=== PATIENT | female | born 1995 | race Caucasian/White ===

== ENCOUNTER 2019-09-23 14:15 | Emergency (ER) | payer BC, SELFPAY ==
[2019-09-23 14:45] VITALS: BP 130/71; PULSE 63; RESP 16; TEMP 37.3; O2SAT 97
[2019-09-23 14:52] LABS: Glucose Point of Care 112 (65-105)
--- NOTE | 2019-09-23 14:57 | ED.URI ---
HPI - URI/Sore Throat General Chief Complaint: Upper Respiratory Infection Stated Complaint: Cold/Flu like symptoms History of Present Illness HPI Narrative: This is a 24-year-old female comes in with flulike symptoms patient did not make to the patient room when she passed out in the triage room went unresponsive. Patient became pale for approximately 1 minute she was unresponsive did not remember what happened she was laid to the floor by nursing staff. Ambulance was called and notified patient was transferred to [facility] patient was alert oriented and talking still very pale does not remember what happened. Patient denies any shortness of breath at this time states she became nauseated dizzy and remembers her vision going Related Data Home Medications Medication Instructions Recorded Confirmed Control Pill DAILY 09/23/19 Allergies Allergy/AdvReac Type Severity Reaction Status Date / Time Sulfa (Sulfonamide Allergy Rash Verified 09/23/19 15:01 Antibiotics) PMFSH Comments At time as signature, I have reviewed and agree with nursing past medical, social, surgical and family history. Please see nursing chart for further information. There is no relevant family history pertinent to the presenting complaint. Exam Narrative: Exam Narrative: GENERAL:pale appearing, well-nourished, in acute distress. HEAD:Normocephalic, atraumatic. EYES: PERRLA and EOMI. ENT: Nares clear, no rhinorrhea or epistaxis. Mucous membranes moist. NECK: Supple. CHEST: Clear to auscultation. No respiratory distress. HEART: Regular rate and rhythm. No murmur heard. Normal peripheral pulses. ABDOMEN: Soft, nontender, nondistended, normal active bowel sounds. EXTREMITIES: Normal range of motion. No edema. SKIN: Warm, dry, no rash. NEURO: No focal deficits. Alert and oriented x3. Patient went unresponsive for approximately 1 minute Vitals were stable and patient was able to sit up prior to going with the ambulance still very weak and pale color did not return. Mom went to the emergency room with patient as well. Course Vital Signs Vital signs: Vital Signs Temperature 99.1 F 09/23/19 14:45 Pulse Rate 63 09/23/19 14:45 Respiratory Rate 16 09/23/19 14:45 Blood Pressure 130/71 09/23/19 14:45 Pulse Oximetry 97 09/23/19 14:45 Temperature 99.1 F 09/23/19 14:45 Pulse Rate 63 09/23/19 14:45 Respiratory Rate 16 09/23/19 14:45 Blood Pressure 130/71 09/23/19 14:45 Pulse Oximetry 97 09/23/19 14:45 MDM - URI/Sore Throat Lab Data Labs: Lab Results 09/23/19 Range/Units 14:48 POC Capillary Glucose 112 H (65-105) mg/dl Discharge Plan Discharge Clinical Impression: Episode of syncope Qualifiers: Syncope type: unspecified Qualified Code(s): R55 - Syncope and collapse Patient Disposition: Acute Care Hospital Condition: Stable Prescriptions: No Action Control Pill DAILY RF: 0 Interventions: Discharge Disposition Last Done: 09/23/19 14:58 Follow-up/Referrals: UNKNOWN,DOCTOR [Primary Care Provider] - Time of Disposition: 14:54 Discharge Date/Time: 09/23/19 14:58
--- NOTE | 2019-09-23 15:36 | PC.NURSE ---
1520; CHART FAXED TO [facility] [place]. Edith DYE RN
== END 2019-09-23 14:58 | disposition short-term general hospital (02) ==
PROVIDERS: Emergency Provider Nurse Practitioner Family
DX: R55 Syncope and collapse (principal)
CPT/HCPCS: 82948; 99202; G0463

== ENCOUNTER 2024-12-06 15:36 | Emergency (ER) | payer OTHER, SELFPAY ==
[2024-12-06 15:38] VITALS: BP 134/79; PULSE 84; RESP 16; TEMP 36.3; O2SAT 97
--- OUTSIDE RECORDS SUMMARY | 2024-12-06 15:38 | XMS_ITS | Clinical Summary ---
Author Organization [facility] [address] [facility] Address [address] [place] [address] Care Team Providers Care Continuous Improvement Analyst Name Role Phone No, Physician Primary Care Provider [phone] Allergies Active Allergy Reactions Criticality Noted Date Comments Sulfa (Sulfonamide Antibiotics) Other (See comments) Low 08/14/2019 Pt's parents are both allergic, go into anaphylaxis, therefore, pt has been advised not to take sulfa. Medications .12/13, , 1.5-30 mg-mcg tablet per tablet TK 1 T PO D 05/29/2019 Active [id number]- Lmfolate-algal 27 mg iron-1.13 mg-581.92 mg capsule Take by mouth Active Active Problems No known active problems Surgical History Surgery Date Site/Laterality Comments WISDOM TOOTH EXTRACTION Medical History Medical History Date Comments No pertinent past medical history Family History Medical History Relation Name Comments Hyperlipidemia Father Hypertension Father Relation Name Status Comments Father Social History Tobacco Use Types Packs/Day Years Used Date Smoking Tobacco: Never Smokeless Tobacco: Never Alcohol Use Standard Drinks/Week Comments Yes 0 (1 standard drink = 0.6 oz pur e alcohol) Occasional Personal Safety Answer Date Recorded Getting School Help Needed Not on file 09/30 Comments Unknown Sex and Gender Information Value Date Recorded Sex Assigned at Not on file Legal Sex Female 3:36 PM CDT Gender Identity Not on file Sexual Orientation Not on file Obstetrics History Last Filed Vital Signs Vital Sign Reading Time Taken Comments Blood Pressure 120/72 02/13/2020 3:33 PM CDT Pulse 84 02/13/2020 3:34 PM CDT right hand Temperature 37.6 C (99.7 F) 02/13/2020 3:33 PM CDT Respiratory Rate 18 02/13/2020 3:33 PM CDT Oxygen Saturation 99% 02/13/2020 3:34 PM CDT right hand Inhaled Oxygen Concentration - - Weight 74.8 kg (165 lb) 02/13/2020 3:33 PM CDT Height 157.5 cm (5' 2 ) 02/13/2020 3:33 PM CDT Body Mass Index 30.18 02/13/2020 3:33 PM CDT Plan of Treatment Not on file Insurance [facility] Care Teams Continuous Improvement Analyst Relationship Specialty Start Date End Date No, Physician PCP - General 08/14/19
--- OUTSIDE RECORDS SUMMARY | 2024-12-06 15:38 | XMS_ITS | Referral Summary ---
Author Organization 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 Medications .12/13, , 1.5-30 mg-mcg tablet per tablet TK 1 T PO D 05/29/2019 Active [id number]- Lmfolate-algal 27 mg iron-1.13 mg-581.92 mg capsule Take by mouth Active Active Problems No known active problems Social History Tobacco Use Types Packs/Day Years [...] on file Sexual Orientation Not on file Last Filed Vital Signs Vital Sign Reading [...] Plan of Treatment Not on file Insurance [employer] Care Teams Electric Golf Cart Repairer Relationship Specialty Start Date End Date No, Physician PCP - General 08/14/19
--- OUTSIDE RECORDS SUMMARY | 2024-12-06 15:38 | XMS_ITS | Clinical Summary ---
Author Organization [facility] Address [address] [place] [address] Phone Care Team Providers Care Art Instructor Name Role Phone Provider, None Primary Care Provider Unavailabl e Allergies No known active allergies Medications No known medications Social History Tobacco Use Types Packs/Day Years Used Date Smoking Tobacco: Never Smokeless Tobacco: Never Alcohol Use Standard Drinks/Week Comments Never 0 (1 standard drink = 0.6 oz pur e alcohol) AUDIT-C Answer Date Recorded Q1: How often do you have a drink containing alc ohol? Never 09/23/2019 Average Number of Drinks Not on file 020 Frequency of Binge Drinking Not on file 03/2020 Comments No Sex and Gender Information Value Date Recorded Sex Assigned at Not on file Legal Sex Female 10:25 PM CDT Gender Identity Not on file Sexual Orientation Not on file Last Filed Vital Signs Vital Sign Reading Time Taken Comments Blood Pressure 125/66 09/23/2019 5:30 PM CDT Pulse 80 09/23/2019 5:15 PM CDT Temperature 37.7 C (99.9 F) 09/23/2019 3:32 PM CDT Respiratory Rate 14 09/23/2019 5:15 PM CDT Oxygen Saturation 99% 09/23/2019 5:15 PM CDT Inhaled Oxygen Concentration - - Weight 74.8 kg (165 lb) 09/23/2019 3:32 PM CDT Height 160 cm (5' 3 ) 09/23/2019 3:32 PM CDT Body Mass Index 29.23 09/23/2019 3:32 PM CDT Plan of Treatment Not on file Insurance [facility] Care Teams Art Instructor Relationship Specialty Start Date End Date Provider, None DONG PCP - General 09/23/19
--- OUTSIDE RECORDS SUMMARY | 2024-12-06 15:38 | XMS_ITS | Clinical Summary ---
Author Organization [facility] Address [address] [place] [address] Care Team Providers Care Corn Detasseler Machine Operator Name Role Phone Unavailable Primary Care Provider Unavailabl e Source Comments [facility],non-owned Affiliates and Associated Physician Practices is amultiple site organization consisting of ambulatory clinics and hospital sitesin [place], [place], [place] and [place]. This disclosure is being madepursuant to the Care Everywhere program and may not contain all information available regarding this patient. Last updated [employer] [facility] Allergies Active Allergy Reactions Criticality Noted Date Comments Sulfa Drugs Other Low 08/14/2019 Pt's parents are both allergic, go into anaphylaxis, therefore, pt has been advised not to take sulfa. Medications * Be aware that medications may not be up to date on this document. Alwaysverify current medications with the patient. norethindrone-et hinyl estradiol () 1.5-30 MG-MCG tablet Take 1 tablet by mouth once daily 05/29/2019 Active Multiple Vitamin (MULTIVITAMIN ADULT PO) Take 1 tablet by mouth once daily Active Active Problems No known active problems Immunizations Immunization Administration Dates Next Due INFLUENZA VACCINE 05/14/2020 Family History Medical History Relation Name Comments None Known Brother None Known Father None Known Maternal Aunt None Known Maternal Grandfather None Known Maternal Grandmother None Known Maternal Uncle None Known Mother None Known Other None Known Paternal Aunt None Known Paternal Grandfather None Known Paternal Grandmother None Known Paternal Uncle None Known Sister Asthma Neg Hx CVA Neg Hx Cancer - Breast Neg Hx Cancer - Other Neg Hx Cancer - Skin, Melanoma Neg Hx Cancer - Skin, Non Melanoma Neg Hx Eczema Neg Hx Hemophilia Neg Hx Psoriasis Neg Hx Relation Name Status Comments Brother Father Maternal Aunt Maternal Grandfather Maternal Grandmother Maternal Uncle Mother Other Paternal Aunt Paternal Grandfather Paternal Grandmother Paternal Uncle Sister Social History Tobacco Use Types Packs/Day Years Used Date Smoking Tobacco: Never Smokeless Tobacco: Never Comments Unknown Sex and Gender Information Value Date Recorded Sex Assigned at Not on file Legal Sex Female 12:11 PM CDT Gender Identity Not on file Sexual Orientation Not on file Plan of Treatment Health Maintenance Due Date Last Done Comments PAP SMEAR 1996 HIV SCREENING 2011 HEPATITIS C SCREENING 03/17/2014 DTAP/TDAP/TD VACCINES (1 - Tdap) 2015 HEPATITIS B VACCINE (1 of 3 - 19+ 3-dose series) 2015 COVID-19 VACCINE (1 - 2023-2 5 season) 2024 DEPRESSION SCREENING 07/17/2024 INFLUENZA VACCINE (Season Ended) 2025 05/14/20 20 ZOSTER VACCINE (1 of 2) 2046 HIB VACCINE Aged Out No longer eligi ble based on patient's age to complete this topic HPV VACCINE Aged Out No longer eligi ble based on patient's age to complete this topic MENINGOCOCCAL (Group B) VACC INE SHARED DECISION-MAKING Aged Out No longer eligibl e based on patient's age to complete this topic MENINGOCOCCAL GROUPS A/C/Y/W VACCINE Aged Out No longer eligible b ased on patient's age to complete this topic PNEUMOCOCCAL VACCINE Aged Out No long er eligible based on patient's age to complete this topic Insurance [employer] Member Subscriber Plan / Payer (Ef fective 2013-Present) Name:Clarissa Schmidt Relation to Subscriber:Child Name:LOULOU SCHMIDT Subscriber ID:Not on file (Home) Address: [address] [place] [address] Payer ID:[id number] (NAIC) Group ID:[id number] Type:O Address: [facility] [id number] [place] [id number]
--- NOTE | 2024-12-06 16:33 | ED.GENADULT ---
HPI - General Adult General Chief complaint: Head Injury Stated complaint: Head injury-chair tipped-hit wall, no LOC Time Seen by Provider: 12/06/24 16:16 History of Present Illness HPI narrative: Patient is a 29-year-old female who presents ER after striking her head on a wall while tipping back in her chair. No LOC. Has some mild frontal throbbing. Mild discomfort in the bilateral neck but maintains full range of motion. No numbness or tingling. She is not on blood thinning agents. No family history of aneurysm. No change in vision or hearing. No nausea or vomiting. Related Data Home Medications ?Medication ?Instructions ?Recorded ?Confirmed ?Last Taken ?Type Control Pill DAILY 09/23/19 Unknown History Allergies Allergy/AdvReac Type Severity Reaction Status Date / Time Sulfa (Sulfonamide Allergy Rash Verified 12/06/24 15:57 Antibiotics) Review of Systems Constitutional: Constitutional: Reports no additional constitutional complaints Eyes: Eyes: Reports no additional eye complaints Gastrointestinal: Gastrointestinal: Reports no additional gastrointestinal complaints Neurologic: Reports system reviewed and no additional complaints, except as documented PMFSH Past Medical History Medical History (Updated 12/06/24 @ 16:37 by Delroy Hedrick MD) Healthy female adult Surgical History Surgical History (Updated 12/06/24 @ 16:34 by Delroy Hedrick MD) No history of previous surgery Exam Narrative: GENERAL: Well-appearing, well-nourished, and in no acute distress. HEAD: Normocephalic, atraumatic. Eyes: PERRLA, EOMI. ENT: Mucous membranes moist. NECK: Supple. Full range of motion without midline tenderness. No significant point tenderness in paraspinal musculature. TMs normal bilaterally. NEURO: Alert and oriented x3. No facial droop. Clear speech. No expressive aphasia. PSYCH: Normal mood and affect. Course Course Emergency Course: Patient given reassurance. Naproxen for headache and neck discomfort. Zofran in case she develops nausea at home. May have mild concussion. Vital Signs Vital signs: Vital Signs Temperature 97.3 F L 12/06/24 15:38 Pulse Rate 84 12/06/24 15:38 Respiratory Rate 16 12/06/24 15:38 Blood Pressure 134/79 12/06/24 15:38 Pulse Oximetry 97 12/06/24 15:38 Oxygen Delivery Room Air 12/06/24 15:38 Temperature 97.3 F L 12/06/24 15:38 Pulse Rate 84 12/06/24 15:38 Respiratory Rate 16 12/06/24 15:38 Blood Pressure 134/79 12/06/24 15:38 Pulse Oximetry 97 12/06/24 15:38 Oxygen Delivery Room Air 12/06/24 15:38 Medical Decision Making MDM Narrative Medical decision making narrative: Turkish CT Head Injury/Trauma Rule from [employer] on 12/06/2024 All calculations should be rechecked by clinician prior to use RESULT SUMMARY: CT Unnecessary The Turkish CT Head Rule suggests a head CT is not necessary for this patient (sensitivity 83-100% for all intracranial traumatic findings, sensitivity 100% for findings requiring neurosurgical intervention). INPUTS: Age <16 years ?> 0 = No Patient on blood thinners ?> 0 = No Seizure after injury ?> 0 = No GCS <15 at 2 hours post-injury ?> 0 = No Suspected open or depressed skull fracture ?> 0 = No Any sign of basilar skull fracture? ?> 0 = No >= episodes of vomiting ?> 0 = No Age >=5 years ?> 0 = No Retrograde amnesia to the event >=30 minutes ?> 0 = No ?Dangerous? mechanism? ?> 0 = No Vital Signs Vital Signs: Vital Signs Temperature 97.3 F L 12/06/24 15:38 Pulse Rate 84 12/06/24 15:38 Respiratory Rate 16 12/06/24 15:38 Blood Pressure 134/79 12/06/24 15:38 Pulse Oximetry 97 12/06/24 15:38 Oxygen Delivery Room Air 12/06/24 15:38 Temperature 97.3 F L 12/06/24 15:38 Pulse Rate 84 12/06/24 15:38 Respiratory Rate 16 12/06/24 15:38 Blood Pressure 134/79 12/06/24 15:38 Pulse Oximetry 97 12/06/24 15:38 Oxygen Delivery Room Air 12/06/24 15:38 Discharge Plan Discharge Clinical Impression: Concussion without loss of consciousness, Cervical strain Patient Disposition: Home Condition: Stable Instructions: Cervical Strain (ED), Concussion (ED) Additional Instructions: Try to stay well hydrated at home. Please return to the emergency department if you develop worsening of your headache or a new headache which is severe, associated with vision changes, associated with neck stiffness or fever, or if it is different from any other headache that you have had before. Return to the emergency department if you develop numbness, weakness or tingling or problems with coordination, or if you develop severe nausea and vomiting and are unable to keep down fluids at home. Patient Language: French Prescriptions: New naproxen 375 mg tablet 375 mg PO BID Qty: 14 0RF ondansetron 4 mg tablet,disintegrating 4 mg PO Q6H PRN (Reason: nausea and vomiting) Qty: 10 0RF No Action Control Pill DAILY Follow-up/Referrals: UNKNOWN,DOCTOR [Primary Care Provider] - 1 Week
--- OUTSIDE RECORDS SUMMARY | 2024-12-06 16:51 | XMS_ITS | Data Portability ---
Author Organization [facility] ARNELAmanda Valdez Address [address] [facility] [address] Care Team Providers Care Sport Shoe Spike Assembler Name Role Phone GUS GOLDBERG Primary Care Provider Assessment No assessment recorded. Plan of Treatment Reminders Order Date Submit Date Provider Last Modified By Organization Details Last Modified Time Details Appointments ANNUAL 30 2024 07:45A M VLADIMIR Mayer Not available Not available Not available Lab None recorded. Referral None recorded. Procedures None recorded. Surgeries None recorded. Imaging None recorded. Medication Orders alprazola m 0.5 mg tablet 2023 024 [id number], [address], [place], [id number], 01/29/2024 17:00:19 paroxetin e 30 mg tablet 2023 024 [id number], [address], [place], [phone], 01/29/2024 17:08:07 Wegovy 0.25 mg/0.5 mL subcutane ous pen injector 2023 024 [facility] #[id number], [address], [place], [id number], 01/29/2024 17:00:13 Patient TargetsNo targets recorded. Patient Instructions Encounter Date Encounter Id Patient Instructions Last Modified By Organization Details Last Modified Time 01/29/2024 [id number] A healthy lifestyle: care instructions [email or web address] Not available 02/14/2024 09:47:48 Reason for Referral None Reported. Problems Name Problem SNOMED Code Status Onset Date Resolution Date Notes Provider Name and Address Organization Details Recorded Time Obesity 301286613 Active 2023 VLADIMIR Mayer Attn: Accountnicky g,[address] [facility], [place], [address], [facility] 4 09:10:30 Body mass index 30+ - obesity 813923468 Active 2023 VLADIMIR Mayer Attn: Accountin g,[address] [facility], [place], [address], [facility] 4 09:10:32 Long-term drug therapy Active 2023 VLADIMIR Mayer Attn: Accountin g,[address] [facility], [place], [address], [facility] 4 09:10:33 Generalized anxiety disorder 18824774 Active 2023 VLADIMIR Mayer Attn: Accountin g,[address] [facility], [place], [address], [facility] 4 09:10:34 Insulin resistance 834870886 Active 2023 VLADIMIR Mayer Attn: Accountin g,[address] [place], [address], [facility] 4 09:10:35 Prediabetes 088586951 Active 2023 VLADIMIR Mayer Attn: Accountin g,[address] [place], [address], [facility] 4 09:10:37 Problem Notes None recorded. Procedures Surgical History Date Name Laterality Status Provider Name and Address Organization Details Recorded Time extraction of wisdom tooth completed Otilia Dewitt [place] [facility] 01/29/2024 16:37:22 Imaging Results None recorded. Procedure Notes None recorded. Medical Equipment None Reported. Allergies Allergen ID Allergen Name Allergen Category Reaction Reaction Severity Criticality Documentation Date Start Date Code Code System Note Provider Name and Address Organization Details Recorded Time 815588 Substance with sulfonami de structure and antibacte rial mechanism of action (substanc e) medicatio n Not available Not available Not available 01/29/2024 74324 8003 SNOMED Unkno wn parte nts are just aller gic Otilia Esdras, MA null, [place] - [facility] 4 16:32:47 Medications Name Sig Start Date Stop Date Status Note LastModified by Organization Details LastModified Time clindamycin HCl 300 mg capsule TAKE 1 CAPSULE BY MOUTH THREE TIMES DAILY FOR 10 DAYS active Not Available Not Available No t Available alprazolam 0.5 mg tablet TAKE 1 TABLET BY MOUTH TWICE DAILY NEEDED active Not Available Not Available No t Available amoxicillin 875 mg tablet TAKE 1 TABLET BY MOUTH EVERY 12 HOURS FOR 7 DAYS 10/09 completed Not Available Not Available Not Available alprazolam 0.25 mg tablet TAKE 1 TABLET BY MOUTH TWICE DAILY NEEDED 10/09 completed Not Available Not Available Not Available imiquimod 5 % topical cream packet 10/09 completed Not Available Not Available Not Available paroxetine 30 mg tablet TAKE 1 TABLET BY MOUTH EVERY DAY active Not Available Not Available No t Available paroxetine 20 mg tablet TAKE 1 TABLET BY MOUTH EVERY DAY IN THE EVENING 10/09 completed Not Available Not Available Not Available mupirocin 2 % topical ointment APPLY TOPICALLY TO THE AFFECTED AREA TWICE DAILY FOR 10 DAYS active Not Available Not Available No t Available metformin ER 500 mg tablet,exte nded release 24 hr 10/09 completed Not Available Not Available Not Available sertraline 50 mg tablet TAKE 1 TABLET BY MOUTH EVERY NIGHT AT BEDTIME. DISCONTIN UE LEXAPRO PRESCRIPT ION 10/09 completed Not Available Not Available Not Available amoxicillin 875 mg-potassiu m clavulanate 125 mg tablet TAKE 1 TABLET BY MOUTH TWICE DAILY FOR 10 DAYS 10/09 completed Not Available Not Available Not Available escitalopra m 10 mg tablet TAKE 1 TABLET BY MOUTH EVERY DAY 10/09 completed Not Available Not Available Not Available escitalopra m 20 mg tablet TAKE 1 TABLET BY MOUTH EVERY DAY 10/09 completed Not Available Not Available Not Available escitalopra m 5 mg tablet TAKE 1 TABLET BY MOUTH EVERY DAY IN THE EVENING 10/09 completed Not Available Not Available Not Available oseltamivir 30 mg capsule 10/09 completed Not Available Not Available Not Available Sally 1.5 mg-30 mcg tablet TAKE 1 TABLET BY MOUTH EVERY DAY active Not Available Not Available No t Available Wegovy 0.25 mg/0.5 mL subcutaneou s pen injector Inject by subcutane ous route for 28 days. 2023 active Not Available Not Available Not Avai lable Vitals Date Recorded Body weight Body mass index (BMI) Body height Heart rate Oxygen saturation Oxygen saturation in Arterial blood by Pulse oximetry Systolic blood pressure Diastolic blood pressure Provider Name and Address Organization Details Last Updated DateTime 16165.1 9 g 37.3 kg/m2 160.02 cm 74 /min 98 % 98 % 134 mm[Hg] 68 mm[Hg] Otilia Dewitt MA [facility] 16:42:04 Date Recorded Respiratory rate Systolic blood pressure Diastolic blood pressure Provider Name and Address Organization Details Last Updated DateTime 01/29/2024 18 /min 120 mm[Hg] 80 mm[Hg] VLADIMIR Mayer Attn: Accounting, [address] [place], [address], [facility] 01/29/2024 17:05:17 Social History Question Answer Notes LastModified by Organizat ion Details LastModified Time Tobacco Smoking Status Never Smoker Otilia Dewitt MA null, [facility] 01/29/2024 16:34:17 Do You Have An Advance Directive? No POA Information not available 01/29/2024 Are You Blind Or Do You Have Difficulty Seeing? Yes Contacts, Glasses Information not available 01/29/2024 What Is Your Level Of Caffeine Consumption? Heavy Information not available 01/29/2024 In The 14 Days Before Symptom Onset, Have You Had Close Contact With A Laboratory-confir med COVID-19 While That Case Was Ill? No Information not available 01/29/2024 In The 14 Days Before Symptom Onset, Have You Had Close Contact With A Person Who Is Under Investigation For COVID-19 While That Person Was Ill? No Information not available 01/29/2024 Have You Been To An Area Known To Be High Risk For COVID-19? No Information not available 01/29/2024 Are You Deaf Or Do You Have Serious Difficulty Hearing? No Information not available 01/29/2024 What Type Of Diet Are You Following? REGULAR Information not available 01/29/2024 Are There Any Guns Present In Your Home? No Information not available 01/29/2024 What Was The Date Of Your Most Recent Tobacco Screening? 01/29/2024 Information not available 01/29/2024 What Is Your Relationship Status? Single Information not available 01/29/2024 Do You Use Your Seat Belt Or Car Seat Routinely? Yes Information not available 01/29/2024 Do You Have Smoke And Carbon Monoxide Detectors In Your Home? Yes Information not available 01/29/2024 Do You Use Sunscreen Routinely? Yes Information not available 01/29/2024 Has Tobacco Cessation Counseling Been Provided? No Information not available 01/29/2024 Sex: Female Functional Status Question Answer Note LastModified by Organizat ion Details LastModified Time Do you use any illicit or recreational drugs? No Information not available 01/29/2024 Do you or have you ever used any other forms of tobacco or nicotine? No Information not available 01/29/2024 What is your level of alcohol consumption? Occasional Information not available 01/29/2024 Are you currently employed? Yes Information not available 01/29/2024 Are you able to care for yourself? 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 None Information not available 01/29/2024 Mental Status Question Answer Note LastModified by Organization D etails LastModified Time Do you feel stressed (tense, restless, nervous, or anxious, or unable to sleep at night)? [id number] Information not available 01/29/2024 Family History Relationship Description Onset Age of this Age Resolved Age Notes LastModified by Organization Details LastModified Time Father Harmful pattern of use of alcohol mebyma Not available 2023 16:33:33 Father Hypertensive disorder mebyma Not available 2023 16:33:42 Father Hypercholest erolemia mebyma Not available 2023 16:33:48 Medical History No medical history recorded. Gynecological History Statement/Question Response Current Control Method BCPs Obstetrics History GPAL:G 0 P 0 0 0 0 Past Encounters Encounter ID Performer Location Encounter Start Date Encounter Closed Date Diagnosis/Indication Diagnosis SNOMED-CT Code Diagnosis ICD10 Code Diagnosis Note [id number] Nick Rebolledo MD [facility] [place] [address] [place] [address] 01/29/2024 16:11:06 01/29/2024 17:15:22 Adult health examination 865754881 Z00.01 Annual wellness exam complete Prediabetes 877506247 R7 3.03 As above Insulin resistance 25863 5000 E88.819 Patient is hoping that would GLP injectable therapy will be approved and this will further treat her insulin resistance and prediabete s Generalize d anxiety disorder 70011419 F41.1 Patient needs a refill on p.r.n. dosing of alprazolam 0.5 mg twice daily Long-term drug therapy 981046980 Z79.899 All labs are currently up-to-date from the last office location Body mass index 30+ - obesity 217594102 Z68.37 start wegovy injectable therapy. no personal or family hx of Medullary thyroid cancer or MEN conditions . Renewal of prescription 568406810 Z76.0 Refill on Paxil 30 mg daily given Obesity 828688929 E66.8 discussed healthy diet, exercise, controllin g carbohydra obdulio and added sugars in the diet Health Concerns Section Related Observation LastModified by Organization Detai ls LastModified Time None Recorded Concern Status LastModified by Organization Details LastModified Time None Recorded Advance Directives Directive N: POA Payers Encounter Date Sequence Insurance Name Policy Number Policy Ma Covered Member ID Ma Member ID Guarantor Name 01/29/2024 1 [employer] - [employer] BENEFIT [email or web address] (PPO) Clarissa Logterman [id number] Clarissa Logterman Notes Date Note Type Note Provider Name and Address Organization Details Recorded Time 01/29/2024 text/html Anxiety/Depressi on Reported bypatient.Notes:Kiya kerr: stabilized on paroxetine 30mg daily. She is doing well with her anxiety and has no new complaints. 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 VLADIMIR Mayer Attn: Accounting,[address] [place], [address], [facility] 02/14/2024 09:48:54 OBGyn Episode No OBEpisode recorded.
--- OUTSIDE RECORDS SUMMARY | 2024-12-06 16:51 | XMS_ITS | Clinical Summary ---
Author Organization [facility] Address [address] [facility] [place] [address] Care Team Providers Care Clay Artist Name Role Phone Unavailable Primary Care Provider Unavailabl e Source Comments [facility],non-owned Affiliates and Associated Physician Practices is amultiple site organization consisting of ambulatory clinics and hospital sitesin [place], [place], [place] and [place]. This disclosure is being madepursuant to the Care Everywhere program and may not contain all information available regarding this patient. Last updated 18.[facility] Allergies Active Allergy Reactions Criticality Noted Date [...] on file (Home) Address: [address] [place] [address] Payer ID:[id number] (NAIC) Group ID:[id number] Type:O Address: [facility] [id number] [place] [id number]
--- OUTSIDE RECORDS SUMMARY | 2024-12-06 16:51 | XMS_ITS | Referral Summary ---
Author Organization [facility] [address] [facility] Address [address] [place] [address] Care Team Providers Care Logistics Loss Prevention Manager Name Role Phone No, Physician Primary Care Provider [phone] Allergies Active Allergy Reactions Criticality Noted Date Comments Sulfa (Sulfonamide Antibiotics) Other (See comments) Low 08/14/2019 Pt's parents are both allergic, go into anaphylaxis, therefore, pt has been advised not to take sulfa. Medications .12/13, , 1.5-30 mg-mcg tablet per tablet TK 1 T PO D 05/29/2019 Active [id number]-ezwl- Lmfolate-algal 27 mg iron-1.13 mg-581.92 mg capsule [...] on file Insurance [employer] Care Teams Logistics Loss Prevention Manager Relationship Specialty Start Date End Date No, Physician PCP - General 08/14/19
--- OUTSIDE RECORDS SUMMARY | 2024-12-06 16:51 | XMS_ITS | Clinical Summary ---
Author Organization [facility] Address [address] [place] [address] Phone Care Team Providers Care Manager Android Name Role Phone Provider, None Primary Care [...] Plan of Treatment Not on file Insurance [facility] Care Teams Manager Android Relationship Specialty Start Date End Date Provider, None DONG PCP - General 09/23/19
--- OUTSIDE RECORDS SUMMARY | 2024-12-06 16:51 | XMS_ITS | Clinical Summary ---
Author Organization [facility] [address] [facility] Address [address] [place] [address] Care Team Providers Care Method Consultant Name Role Phone No, Physician Primary Care Provider [phone] Allergies Active Allergy Reactions Criticality Noted Date Comments Sulfa (Sulfonamide Antibiotics) Other (See comments) Low 08/14/2019 Pt's parents are both allergic, go into anaphylaxis, therefore, pt has been advised not to take sulfa. Medications .12/13, , 1.5-30 mg-mcg tablet per tablet TK 1 T PO D 05/29/2019 Active pvynekhc65-hhub- Lmfolate-algal 27 mg iron-1.13 mg-581.92 mg capsule [...] Plan of Treatment Not on file Insurance [facility] Care Teams Method Consultant Relationship Specialty Start Date End Date No, Physician PCP - General 08/14/19
--- OUTSIDE RECORDS SUMMARY | 2024-12-06 16:51 | XMS_ITS | Data Portability ---
Author Organization [place] [facility], Main Office Address [address] [place] [address] Assessment Encounter Date Assessment Date Assessment LastModified by Organization Details LastModified Time 11/15/2022 11/15/2022 The patient gave verbal consent using TeleHealth services and the consent is documented in the medical record prior to using the service. The patient has been informed of what a TeleMedicine visit is. Patient is located at home. Provider is located at office. Names and roles of persons in addition to the patient and provider participating in telemedicine services include none. The patient had a 12 minute TeleMedicine consultation via [facility] to discuss the following: Not available 11/15/2022 12:43:08 12/13/2022 12/13/2022 The patient gave verbal consent using TeleHealth services and the consent is documented in the medical record prior to using the service. The patient has been informed of what a TeleMedicine visit is. Patient is located at home. Provider is located at office. Names and roles of persons in addition to the patient and provider participating in telemedicine services include none. The patient had a 11 minute TeleMedicine consultation via [facility] to discuss the following: Not available 12/13/2022 09:34:34 01/10/2023 01/10/2023 The patient gave verbal consent using TeleHealth services and the consent is documented in the medical record prior to using the service. The patient has been informed of what a TeleMedicine visit is. Patient is located at home. Provider is located at office. Names and roles of persons in addition to the patient and provider participating in telemedicine services include none. The patient had a 8 minute TeleMedicine consultation via [facility] to discuss the following: Not available 01/10/2023 20:42:48 Plan of Treatment Reminders Order Date Submit Date Provider Last Modified By Organization Details Last Modified Time Details Appointments None recorded. Lab None recorded. Referral None recorded. Procedures None recorded. Surgeries None recorded. Imaging None recorded. Medication Orders paroxetine 30 mg tablet 2022 023 [employer] [employer] [facility]87, [address], [place], [place], [id number], 3 20:41:53 alprazolam 0.5 mg tablet 2022 023 [facility] #00854, [address], [place], [place], [id number], 3 09:35:03 escitalopra m 20 mg tablet 2022 023 [facility] #93277, [address], [place], [place], [id number], 3 18:04:33 Lexapro 5 mg tablet 2022 023 [facility] #01126, [address], [place], [place], [id number], 3 21:49:47 alprazolam 0.25 mg tablet 2022 023 [facility] #22755, [address], [place], [place], [id number], 3 09:35:05 Patient TargetsNo targets recorded. Patient Instructions Encounter Date Encounter Id Patient Instructions Last Modified By Organization Details Last Modified Time 11/15/2022 [id number] Due to the COVID-19 (Novel Coronavirus) pandemic, it is within this context (and with the understanding that this method of patient encounter is in the patient s best interest as well as the health and safety of other patients and the public) that telehealth is being provided for this patient encounter rather than a pdpk-ox-idqm visit. This patient encounter is appropriate at this time. This patient has been advised of the potential risks and limitations of this mode of treatment (including, but not limited to, the absence of in-person examination) and has agreed to be treated in a remote fashion despite these risks. Any and all of the patient s/patient s family s questions on this issue have been answered, and I have made no promises or guarantees to the patient. The patient has also been advised to contact this office for worsening conditions or problems, and seek emergency medical treatment and/or call 911 if the patient deems either necessary. HPI and/or vitals, if listed, were provided by the patient. [email or web address] Not available 11/15/2022 12:27:38 01/10/2023 [id number] Due to the COVID-19 (Novel Coronavirus) pandemic, it is within this context (and with the understanding that this method of patient encounter is in the patient s best interest as well as the health and safety of other patients and the public) that telehealth is being provided for this patient encounter rather than a wcmg-pv-qnag visit. This patient encounter is appropriate at this time. This patient has been advised of the potential risks and limitations of this mode of treatment (including, but not limited to, the absence of in-person examination) and has agreed to be treated in a remote fashion despite these risks. Any and all of the patient s/patient s family s questions on this issue have been answered, and I have made no promises or guarantees to the patient. The patient has also been advised to contact this office for worsening conditions or problems, and seek emergency medical treatment and/or call 911 if the patient deems either necessary. HPI and/or vitals, if listed, were provided by the patient. [email or web address] Not available 01/10/2023 09:18:12 Reason for Referral None Reported. Results Created Date Observation Date Name Description Value Unit Range Abnormal Flag Note LastModifiedBy Organization Detail LastModifiedTime 10/05/19 23 10/10/2022 FSH AND LH FSH 0.9 mIU/m L low Refer ence Range Folli cular Phase 2.5-1 0.2 Mid-c ycle Peak 3.1-1 7.7 Lutea l Phase 1.5- 9.1 Postm enopa usal 23.0- 116.3 Not Available [address] [place], [address], 10/10/2022 02:12:33 10/05/19 23 10/10/2022 FSH AND LH LH 0.4 mIU/m L low Refer ence Range Folli cular Phase 1.9-1 2.5 Mid-C ycle Peak 8.7-7 6.3 Lutea l Phase 0.5-1 6.9 Postm enopa usal 10.0- 54.7 Not Available [facility] [address], [address], 10/10/2022 02:12:33 10/05/1910/10/2022 TSH+F REE T4 TSH 2.30 mIU/L normal Refer ence Range > or = 20 Years 0.40- 4.50 Pregn hong Range s First trime ster 0.26- 2.66 Secon d trime ster 0.55- 2.73 Third trime ster 0.43- 2.91 Not Available [address], [address], 10/10/2022 02:12:34 10/05/1910/10/2022 TSH+F REE T4 T4, free 1.2 NG/dL 0.8-1. 8 normal Not Available [address], [address], 10/10/2022 02:12:34 10/05/19 23 10/10/2022 LIPID PANEL WITH RATIO S cholesterol, total 176 mg/dL <200 normal Not Available [address], [address], 10/10/2022 02:12:35 10/05/19 23 10/10/2022 LIPID PANEL WITH RATIO S HDL cholesterol 36 mg/dL > or = 50 low Not Available [address], [address], 10/10/2022 02:12:35 10/05/1910/10/2022 LIPID PANEL WITH RATIO S triglyceride s 147 mg/dL <150 normal Not Available [address], [address], 10/10/2022 02:12:35 10/05/19 23 10/10/2022 LIPID PANEL WITH RATIO S LDL-choleste rol 114 mg/dL _(marian c) high Refer ence range : <100 Becka able range <100 mg/dL for prima ry preve ntion ; <70 mg/dL for patie nts with CHD or diabe tic patie nts with > or = 2 CHD risk facto rs. LDL-C is now calcu lated using the Jaja n-Hop kins calcu francisco javier n, which is a valid ated novel mico d provi ding bereket r accur acy than the Fried sergio equat ion in the estim ation of LDL-C . Jaja cedeno SS et al. MONA. 2013; 310(1 9): 2061- 2068 (http ://ed ucati on.Qu estDi Push Computing. com/f aq/FA Q164) Not Available [address], [address], 10/10/2022 02:12:35 10/05/1910/10/2022 LIPID PANEL WITH RATIO S chol/HDLC ratio 4.9 (calc ) <5.0 normal Not Available [address], [address], 10/10/2022 02:12:35 10/05/1910/10/2022 LIPID PANEL WITH RATIO S LDL/HDL ratio 3.2 (calc ) Below avera ge Risk: <2.34 [place] ge Risk: 2.35- 4.12 Moder ate Risk: 4.13- 5.56 High Risk: >5.57 Not Available [address], [address], 10/10/2022 02:12:35 10/05/19 23 10/10/2022 LIPID PANEL WITH RATIO S non HDL cholesterol 140 mg/dL _(marian c) <130 high For patie nts with diabe obdulio plus 1 major ASCVD risk facto r, treat ing to a non-H DL-C goal of <100 mg/dL (LDL- C of <70 mg/dL ) is consi matthias salinas optio n. Not Available [address] [address] [place], [address], 10/10/2022 02:12:35 10/05/19 23 10/10/2022 COMPR EHENS MELISSA METAB OLIC PANEL glucose 91 mg/dL 65-99 normal Fasti ng refer ence inter ta Not Available [address] [address] [place], [address], 10/10/2022 02:12:36 10/05/19 23 10/10/2022 COMPR EHENS MELISSA METAB OLIC PANEL urea nitrogen (BUN) 10 mg/dL 7-25 normal Not Available [address] [address] [place], [address], 10/10/2022 02:12:36 10/05/19 23 10/10/2022 COMPR EHENS MELISSA METAB OLIC PANEL creatinine 0.74 mg/dL 0.50-0 .96 normal Not Available [address] [address] [place], [address], 10/10/2022 02:12:36 10/05/19 23 10/10/2022 COMPR EHENS MELISSA METAB OLIC PANEL eGFR 114 mL/mi n/1.7 3m2 > or = 60 normal The eGFR is based on the CKD-E PI 2020 reinaldo mandel. To calcu late the new eGFR from a previ ous Creat inine or Cysta josé antonio C resul t, go to https ://hattie crenshaw.orlando casanova/rock wilde s/ kdoqi /gfr% 5Fcal culat or Not Available [address] [address] [place], [address], 10/10/2022 02:12:36 10/05/19 23 10/10/2022 COMPR EHENS MELISSA METAB OLIC PANEL BUN/creatini ne ratio NOT APPLIC ABLE (calc ) 6-22 Not Available [address], [address], 10/10/2022 02:12:36 10/05/19 23 10/10/2022 COMPR EHENS MELISSA METAB OLIC PANEL sodium 139 mmol/ L 135-14 6 normal Not Available [address], [address], 10/10/2022 02:12:36 10/05/19 23 10/10/2022 COMPR EHENS MELISSA METAB OLIC PANEL potassium 4.0 mmol/ L 3.5-5. 3 normal Not Available [address], [address], 10/10/2022 02:12:36 10/05/19 23 10/10/2022 COMPR EHENS MELISSA METAB OLIC PANEL chloride 106 mmol/ L 98-110 normal Not Available [address], [address], 10/10/2022 02:12:36 10/05/19 23 10/10/2022 COMPR EHENS MELISSA METAB OLIC PANEL carbon dioxide 25 mmol/ L 20-32 normal Not Available [address], [address], 10/10/2022 02:12:36 10/05/19 23 10/10/2022 COMPR EHENS MELISSA METAB OLIC PANEL calcium 8.9 mg/dL 8.6-10 .2 normal Not Available [address], [address], 10/10/2022 02:12:36 10/05/19 23 10/10/2022 COMPR EHENS MELISSA METAB OLIC PANEL protein, total 6.9 g/dL 6.1-8. 1 normal Not Available [address], [address], 10/10/2022 02:12:36 10/05/19 23 10/10/2022 COMPR EHENS MELISSA METAB OLIC PANEL albumin 4.3 g/dL 3.6-5. 1 normal Not Available [address], [address], 10/10/2022 02:12:36 10/05/19 23 10/10/2022 COMPR EHENS MELISSA METAB OLIC PANEL globulin 2.6 g/dL_ (calc ) 1.9-3. 7 normal Not Available [address], [address], 10/10/2022 02:12:36 10/05/19 23 10/10/2022 COMPR EHENS MELISSA METAB OLIC PANEL albumin/glob ulin ratio 1.7 (calc ) 1.0-2. 5 normal Not Available [address], [address], 10/10/2022 02:12:36 10/05/19 23 10/10/2022 COMPR EHENS MELISSA METAB OLIC PANEL bilirubin, total 0.4 mg/dL 0.2-1. 2 normal Not Available [address], [address], 10/10/2022 02:12:36 10/05/19 23 10/10/2022 COMPR EHENS MELISSA METAB OLIC PANEL alkaline phosphatase 72 U/L 31-125 normal Not Available [address], [address], 10/10/2022 02:12:36 10/05/19 23 10/10/2022 COMPR EHENS MELISSA METAB OLIC PANEL AST 16 U/L 10-30 normal Not Available [address], [address], 10/10/2022 02:12:36 10/05/19 23 10/10/2022 COMPR EHENS MELISSA METAB OLIC PANEL ALT 35 U/L 6-29 high Not Available [facility] [address] , [place], [address], 10/10/2022 02:12:36 10/05/19 23 10/10/2022 HEMOG LOBIN A1C hemoglobin A1C 5.4 %_of_ total _HGB <5.7 normal For the purpo se of scree avtar for the prese nce of diabe obdulio: <5.7% Consi stent with the absen ce of diabe obdulio 5.7-6 .4% Consi stent with incre ased risk for diabe obdulio (pred iabet es) > or =6.5% Consi stent with diabe obdulio This assay resul t is consi stent with a decre ased risk of diabe obdulio. Curre ntly, no conse nsus exist s ava taylor use of hemog lobin A1c for diagn osis of diabe obdulio in child juan carlos. Accor ding to Ameri can Diabe obdulio Assoc iatio n (ADA) guide lines , hemog lobin A1c <7.0% repre sents optim al contr ol in non-p regna nt diabe tic patie nts. Diffe rent metri cs may apply to speci fic patie nt popul ation s. Stand ards of Medic al Care in Diabe obdulio(A DA). Not Available [facility] [address], [place], [address], 10/10/2022 02:12:36 10/05/19 23 10/10/2022 ESTRO GEN, TOTAL , SERUM estrogen, total, serum 95.9 pg/mL Refer ence Range s for Total Estro gen: Folli cular Phase (1-12 days) : 90-59 0 pg/mL Lutea l Phase : 130-4 60 pg/mL Postm enopa usal: 50-17 0 pg/mL The total estro gen assay is not recom cindy d for use in pre-p ubert al child juan carlos. Not Available [address] [address] [place], [address], 10/10/2022 02:12:37 10/05/1910/10/2022 CBC (INCL UDES DIFF/ PLT) white blood cell count 7.3 thous and/u L 3.8-10 .8 normal Not Available [address], [address], 10/10/2022 02:12:38 10/05/1910/10/2022 CBC (INCL UDES DIFF/ PLT) red blood cell count 4.86 harsh on/uL 3.80-5 .10 normal Not Available [address], [address], 10/10/2022 02:12:38 10/05/1910/10/2022 CBC (INCL UDES DIFF/ PLT) hemoglobin 14.7 g/dL 11.7-1 5.5 normal Not Available [address], [address], 10/10/2022 02:12:38 10/05/1910/10/2022 CBC (INCL UDES DIFF/ PLT) hematocrit 43.6 % 35.0-4 5.0 normal Not Available [address], [address], 10/10/2022 02:12:38 10/05/1910/10/2022 CBC (INCL UDES DIFF/ PLT) MCV 89.7 fL 80.0-1 00.0 normal Not Available [address], [address], 10/10/2022 02:12:38 10/05/1910/10/2022 CBC (INCL UDES DIFF/ PLT) MCH 30.2 pg 27.0-3 3.0 normal Not Available [address], [address], 10/10/2022 02:12:38 10/05/19 23 10/10/2022 CBC (INCL UDES DIFF/ PLT) MCHC 33.7 g/dL 32.0-3 6.0 normal Not Available [address], [address], 10/10/2022 02:12:38 10/05/19 23 10/10/2022 CBC (INCL UDES DIFF/ PLT) RDW 12.0 % 11.0-1 5.0 normal Not Available [address], [address], 10/10/2022 02:12:38 10/05/19 23 10/10/2022 CBC (INCL UDES DIFF/ PLT) platelet count 330 thous and/u L 140-40 0 normal Not Available [address], [address], 10/10/2022 02:12:38 10/05/19 23 10/10/2022 CBC (INCL UDES DIFF/ PLT) MPV 9.1 fL 7.5-12 .5 normal Not Available [address], [address], 10/10/2022 02:12:38 10/05/19 23 10/10/2022 CBC (INCL UDES DIFF/ PLT) absolute neutrophils 4979 cells /uL 1500-7 800 normal Not Available [address], [address], 10/10/2022 02:12:38 10/05/19 23 10/10/2022 CBC (INCL UDES DIFF/ PLT) absolute lymphocytes 1701 cells /uL 850-39 00 normal Not Available [address], [address], 10/10/2022 02:12:38 10/05/19 23 10/10/2022 CBC (INCL UDES DIFF/ PLT) absolute monocytes 489 cells /uL 200-95 0 normal Not Available [address], [address], 10/10/2022 02:12:38 10/05/19 23 10/10/2022 CBC (INCL UDES DIFF/ PLT) absolute eosinophils 80 cells /uL 15-500 normal Not Available [address], [address], 10/10/2022 02:12:38 10/05/19 23 10/10/2022 CBC (INCL UDES DIFF/ PLT) absolute basophils 51 cells /uL 0-200 normal Not Available [address], [address], 10/10/2022 02:12:38 10/05/19 23 10/10/2022 CBC (INCL UDES DIFF/ PLT) neutrophils 68.2 % normal Not Available [address], [address], 10/10/2022 02:12:38 10/05/19 23 10/10/2022 CBC (INCL UDES DIFF/ PLT) lymphocytes 23.3 % normal Not Available [address], [address], 10/10/2022 02:12:38 10/05/1910/10/2022 CBC (INCL UDES DIFF/ PLT) monocytes 6.7 % normal Not Available [address], [address], 10/10/2022 02:12:38 10/05/19 23 10/10/2022 CBC (INCL UDES DIFF/ PLT) eosinophils 1.1 % normal Not Available [address], [address], 10/10/2022 02:12:38 10/05/19 23 10/10/2022 CBC (INCL UDES DIFF/ PLT) basophils 0.7 % normal Not Available [address], [address], 10/10/2022 02:12:38 10/05/19 23 10/10/2022 URINA LYSIS , COMPL ETE W/REF SASHA TO CULTU RE color DARK YELLOW yellow normal Not Available [address], [address], 10/10/2022 02:12:38 10/05/19 23 10/10/2022 URINA LYSIS , COMPL ETE W/REF SASHA TO CULTU RE appearance CLEAR clear normal Not Available [address], [address], 10/10/2022 02:12:38 10/05/19 23 10/10/2022 URINA LYSIS , COMPL ETE W/REF SASHA TO CULTU RE specific gravity 1.025 1.001- 1.035 normal Not Available [address], [address], 10/10/2022 02:12:38 10/05/19 23 10/10/2022 URINA LYSIS , COMPL ETE W/REF SASHA TO CULTU RE pH 6.0 5.0-8. 0 normal Not Available [address], [address], 10/10/2022 02:12:38 10/05/19 23 10/10/2022 URINA LYSIS , COMPL ETE W/REF SASHA TO CULTU RE glucose NEGATI VE negati ve normal Not Available [address], [address], 10/10/2022 02:12:38 10/05/19 23 10/10/2022 URINA LYSIS , COMPL ETE W/REF SASHA TO CULTU RE bilirubin NEGATI VE negati ve normal Not Available [address], [address], 10/10/2022 02:12:38 10/05/19 23 10/10/2022 URINA LYSIS , COMPL ETE W/REF SASHA TO CULTU RE ketones NEGATI VE negati ve normal Not Available [address], [address], 10/10/2022 02:12:38 10/05/19 23 10/10/2022 URINA LYSIS , COMPL ETE W/REF SASHA TO CULTU RE occult blood NEGATI VE negati ve normal Not Available [address], [address], 10/10/2022 02:12:38 10/05/19 23 10/10/2022 URINA LYSIS , COMPL ETE W/REF SASHA TO CULTU RE protein NEGATI VE negati ve normal Not Available [address], [address], 10/10/2022 02:12:38 10/05/19 23 10/10/2022 URINA LYSIS , COMPL ETE W/REF SASHA TO CULTU RE nitrite NEGATI VE negati ve normal Not Available [address], [address], 10/10/2022 02:12:38 10/05/19 23 10/10/2022 URINA LYSIS , COMPL ETE W/REF SASHA TO CULTU RE leukocyte esterase NEGATI VE negati ve normal Not Available [address], [address], 10/10/2022 02:12:38 10/05/19 23 10/10/2022 URINA LYSIS , COMPL ETE W/REF SASHA TO CULTU RE WBC 0-5 /hpf < or = 5 normal Not Available [address], [address], 10/10/2022 02:12:38 10/05/19 23 10/10/2022 URINA LYSIS , COMPL ETE W/REF SASHA TO CULTU RE RBC NONE SEEN /hpf < or = 2 normal Not Available [address], [address], 10/10/2022 02:12:38 10/05/19 23 10/10/2022 URINA LYSIS , COMPL ETE W/REF SASHA TO CULTU RE squamous epithelial cells NONE SEEN /hpf < or = 5 normal Not Available [address], [address], 10/10/2022 02:12:38 10/05/19 23 10/10/2022 URINA LYSIS , COMPL ETE W/REF SASHA TO CULTU RE bacteria NONE SEEN /hpf none seen normal Not Available [address], [address], 10/10/2022 02:12:38 10/05/19 23 10/10/2022 URINA LYSIS , COMPL ETE W/REF SASHA TO CULTU RE hyaline cast NONE SEEN /lpf none seen normal Not Available [address], [address], 10/10/2022 02:12:38 10/05/19 23 10/10/2022 REFLE XIVE URINE CULTU RE reflexive urine culture NO CULTU RE INDIC ATED Not Available [address], [address], 10/10/2022 02:12:39 10/05/19 23 10/10/2022 VITAM IN B12/F OLATE , SERUM PANEL vitamin B12 498 pg/mL 200-11 00 normal Not Available [address], [address], 10/10/2022 02:12:40 10/05/19 23 10/10/2022 VITAM IN B12/F OLATE , SERUM PANEL folate, serum 16.1 NG/mL normal Refer ence Range Low: <3.4 Borde rline : 3.4-5 .4 Christiane l: >5.4 Not Available [facility] [address] [address] [place], [address], 10/10/2022 02:12:40 10/05/1910/10/2022 DHEA SULFA TE DHEA sulfate 96 mcg/d L 14-349 normal Not Available [address], [address], 10/10/2022 02:12:40 10/05/1910/10/2022 INSUL IN insulin 10.0 uIU/m L normal Refer ence Range < or = 18.4 Risk: Optim al < or = 18.4 Moder ate NA High >18.4 Adult cardi ovasc ular event risk categ ory cut point s (opti mal, moder ate, high) are based on Insul in Refer ence Inter ta studi es perfo rmed at [facility] Diagn ostic s in 2021. Not Available [facility] [address], [address], 10/10/2022 02:12:41 10/05/1910/10/2022 PROGE STERO NE progesterone <0.5 NG/mL normal Refer ence Range s Femal e Folli cular Phase < 1.0 Lutea l Phase 2.6-2 1.5 Post menop ausal < 0.5 Pregn hong 1st Trime ster 4.1-3 4.0 2nd Trime ster 24.0- 76.0 3rd Trime ster 52.0- 302.0 Not Available [facility] [address] [address] [place], [address], 10/10/2022 02:12:42 10/05/1910/10/2022 TESTO STERO NE, TOTAL , MS testosterone , total, MS 10 NG/dL 2-45 For addit ional parish [place] e refer to https ://ed irvinati on.qu andreia [employer]. Flourish Prenatal/f aq/To Geovanna clifton LCMSM S (This link is being provi ded for infor matio nal/e ducat ional purpo ses only. ) (Note ) This test was devel oped and its hazel tical perfo rmanc e nilson cteri stics have been deter mined by [employer]. It has not been clear ed or appro isabella by the FDA. This assay has been valid ated pursu ant to the CLIA regul ation s and is used for clini marian purpo ses. MELVIN med fusio n [address] [facility] [address] [place] [address] [phone] Sedrick gan MD Not Available [facility] [address], [place], [address], 10/10/2022 02:12:42 Result Notes None recorded. Problems Name Problem SNOMED Code Status Onset Date Resolution Date Notes Provider Name and Address Organization Details Recorded Time Polycystic ovary syndrome 980366832 Active 2022 Not Available [facility] 3 01:48:20 Generalized anxiety disorder 89780357 Active 2022 Earnestine Romero, GRACIE null, [place] [employer] [facility] [employer] 3 10:32:39 Anxiety 43321195 Active 2022 VLADIMIR Mayer [address] [facility] [address], [place], [address] , [facility] [employer] 3 10:00:38 Problem Notes None recorded. Procedures Surgical History Date Name Laterality Status Provider Name and Address Organization Details Recorded Time extraction of wisdom tooth completed Not Available [facility] 09/15/2022 01:47:59 Imaging Results None recorded. Procedure Notes None recorded. Medical Equipment None Reported. Allergies Allergen ID Allergen Name Allergen Category Reaction Reaction Severity Criticality Documentation Date Start Date Code Code System Note Provider Name and Address Organization Details Recorded Time 35647 Substance with sulfonami de structure and antibacte rial mechanism of action (substanc e) medicatio n Not available Not available Not available 09/15/2022 65477 8003 SNOMED Not Available [facility] 3 01:48:52 Medications Name Sig Start Date Stop Date Status Note LastModified by Organization Details LastModified Time alprazolam 0.5 mg tablet TAKE 1 TABLET BY MOUTH TWICE DAILY NEEDED active Not Available Not Available No t Available alprazolam 0.25 mg tablet TAKE 1 TABLET BY MOUTH TWICE DAILY NEEDED 12/13 completed Not Available Not Available Not Available paroxetine 30 mg tablet TAKE 1 TABLET BY MOUTH EVERY DAY 2023 active Not Available Not Available Not Avai lable paroxetine 20 mg tablet TAKE 1 TABLET BY MOUTH EVERY DAY IN THE EVENING 07/19 completed Not Available Not Available Not Available sertraline 50 mg tablet TAKE 1 TABLET BY MOUTH EVERY NIGHT AT BEDTIME. DISCONTIN UE LEXAPRO PRESCRIPT ION 01/03 completed Not Available Not Available Not Available escitalopra m 10 mg tablet TAKE 1 TABLET BY MOUTH EVERY DAY 12/13 completed Not Available Not Available Not Available escitalopra m 20 mg tablet TAKE 1 TABLET BY MOUTH EVERY DAY 12/26 completed Not Available Not Available Not Available (21) 1.5 mg-30 mcg tablet TAKE 1 TABLET BY MOUTH EVERY DAY active Not Available Not Available No t Available Lexapro 5 mg tablet Take 1 tablet every day by oral route in the evening. 2022 active Not Available Not Available Not Avai lable Vitals Date Recorded Body mass index (BMI) Body height Oxygen saturation Oxygen saturation in Arterial blood by Pulse oximetry Heart rate Body temperature Body weight Systolic blood pressure Diastolic blood pressure Provider Name and Address Organization Details Last Updated DateTime 3 32.8 kg/m2 160.02 cm 98 % 98 % 89 /min 97.6 [degF] 06132.5 9 g 118 mm[Hg] 74 mm[Hg] Not Available [facility] 3 01:48:13 Date Recorded Body height Provider Name an d Address Organization Details Last Updated DateTime 11/15/2022 160.02 cm GRACIE Tolbert [facility] [employer] 11/15/2022 12:27:47 Date Recorded Body height Provider Name an d Address Organization Details Last Updated DateTime 12/13/2022 160.02 cm Radha Malloy RN [facility] [employer] 12/13/2022 09:17:29 Date Recorded Body height Provider Name an d Address Organization Details Last Updated DateTime 01/10/2023 160.02 cm GRACIE Tolbert [employer] 01/10/2023 09:18:14 Social History Question Answer Notes LastModified by Organizat ion Details LastModified Time Tobacco Smoking Status Never Smoker GRACIE Tolbert null, KATHRINE DONALDSON [employer] [facility] 11/15/2022 12:27:31 What Is Your Level Of Caffeine Consumption? Moderate [id number] Information not available 09/15/2022 In The 14 Days Before Symptom Onset, Have You Had Close Contact With A Laboratory-confir med COVID-19 While That Case Was Ill? No [email or web address] Information not available 11/15/2022 In The 14 Days Before Symptom Onset, Have You Had Close Contact With A Person Who Is Under Investigation For COVID-19 While That Person Was Ill? No Information not available 11/15/2022 What Type Of Diet Are You Following? REGULAR [email or web address] Information not available 11/14/2022 What Is The Highest Grade Or Level Of School You Have Completed Or The Highest Degree You Have Received? [id number] In [employer] [email or web address] Information not available 11/15/2022 Have There Been Any Changes To Your Family Or Social Situation? No [email or web address] Information no t available 11/15/2022 Do You Use Insect Repellent Routinely? Yes [email or web address] Information not available 11/15/2022 What Was The Date Of Your Most Recent Tobacco Screening? 12/13/2022 [email or web address] Information not available 12/13/2022 Have You Ever Been Counseled For Unhealthy Alcohol Use? No [email or web address] Information not available 12/13/2022 What Is Your Relationship Status? Single [id number] Information not available 09/15/2022 Do You Have Smoke And Carbon Monoxide Detectors In Your Home? Yes [email or web address] Information not available 11/15/2022 Do You Use Sunscreen Routinely? Yes Information not available 11/15/2022 Have You Recently Traveled Abroad? No [email or web address] Information not available 11/15/2022 Do You Have Any Dietary Restrictions? No [email or web address] Information not available 11/15/2022 Sex: Unknown Functional Status Question Answer Note LastModified by Organizat ion Details LastModified Time Do you use any illicit or recreational drugs? No [email or web address] Information not available 12/13/2022 Do you or have you ever used any other forms of tobacco or nicotine? No [email or web address] Information not available 11/15/2022 What is your level of alcohol consumption? Occasional [id number] Information not available 09/15/2022 What is your exercise level? Occasional [email or web address] Information not available 11/14/2022 Mental Status Question Answer Note LastModified by Organization D etails LastModified Time Do you feel stressed (tense, restless, nervous, or anxious, or unable to sleep at night)? [id number] [email or web address] Information not available 11/15/2022 Family History Relationship Description Onset Age of this Age Resolved Age Notes LastModified by Organization Details LastModified Time Father Hypertensive disorder [id number] Not available 09/15/2022 01:48:00 Medical History No medical history recorded. Gynecological HistoryNo gynecological history recorded. Obstetrics History GPAL:G 0 P 0 0 0 0 Past Encounters Encounter ID Performer Location Encounter Start Date Encounter Closed Date Diagnosis/Indication Diagnosis SNOMED-CT Code Diagnosis ICD10 Code Diagnosis Note [id number] VLADIMIR Mayer [facility] [place] [address] [place] [address] 08/19/2022 00:00:00 09/13/2022 17:33:13 [id number] VLADIMIR Mayer [facility] [place] [address] [place] [address] 11/15/2022 12:26:53 11/15/2022 13:26:34 Generalized anxiety disorder 31691401 F41.1 start lexapro 5mg daily and PRN alprazolam 0.25mg bid . f/u 1 month telemed [id number] VLADIMIR Mayer [facility] [address] [place] [address] [place] [address] 12/13/2022 09:16:42 12/13/2022 09:38:20 Generalized anxiety disorder 63268131 F41.1 increase to lexapro 20mg daily. continue PRN bid alprazolam , but goal is to decrease frequency of alprazolam use. 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 Anxiety is all related to studying for this high stakes exam [id number] VLADIMIR Mayer [facility] [place] [address] [place] [address] 01/10/2023 09:17:12 01/10/2023 09:48:28 Generalized anxiety disorder 64572674 F41.1 refill paxil at 30mg higher dose. Health Concerns Section Related Observation LastModified by Organization Detai ls LastModified Time None Recorded Concern Status LastModified by Organization Details LastModified Time None Recorded Advance Directives Directive None Recorded Payers Encounter Date Sequence Insurance Name Policy Number Policy Ma Covered Member ID Ma Member ID Guarantor Name 11/15/2022 1 [employer] [id number] Clarissa Logterman [id number] 2 Clarissa Logterman 12/13/2022 1 [employer] [id number] Clarissa Logterman [id number] 2 Clarissa Logterman 01/10/2023 1 [employer] [id number] Clarissa Logterman [id number] 2 Clarissa Logterman Notes Date Note Type Note Provider Name and Address Organization Details Recorded Time 11/15/2022 text/html Anxiety/Depressi onR eported bypatient.Quality:d oesnt matter time of day. Severity:denies suicidal ideations; able to maintain relationships;inter ference with sleep Duration:frequent; symptoms lasting over 2 weeks Onset/Timing:still present Context:major life stressors(school) Modifying Factors:counselling (through school) Associated Symptoms:denies homicidal ideations; no significant weight gain; no significant weight loss; no visual/auditory hallucinations; no delusions; no shortness of breath;anxiety;inso mnia;sleep disturbances VLADIMIR Mayer [address] [facility] [address], [place], [address], [facility] [employer] 12/13/2022 21:51:30 12/13/2022 text/html Anxiety/Depressi onR eported bypatient.Quality:w orse in morning Severity:denies suicidal ideations; able to maintain relationships;inter ference with sleep Duration:frequent; symptoms lasting over 2 weeks Onset/Timing:still present Context:major life stressors(school) Modifying Factors:counselling (through school) Associated Symptoms:denies homicidal ideations; no significant weight gain; no significant weight loss; no visual/auditory hallucinations; no delusions; no shortness of breath;anxiety;inso mnia;sleep disturbancesNotes:l exapro 10mg now, not noticing too much improvement. 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 f/u VLADIMIR Mayer [address] [facility] [facility] [address], [place], [address], [employer] 12/13/2022 17:22:56 01/10/2023 text/html Anxiety/Depressi onR eported bypatient.Quality:w orse in the morning Severity:denies suicidal ideations; able to maintain relationships Duration:frequent; symptoms lasting over 2 weeks Onset/Timing:still present Context:major life stressors(school) Modifying Factors:counselling (through school); rx meds Associated Symptoms:denies homicidal ideations; no significant weight gain; no significant weight loss; no visual/auditory hallucinations; no delusions; no shortness of breath;anxietyNotes :Pt is having a telehealth to f/u on the paxil 20mg. She says it is helping calm her down some. VLADIMIR Mayer [address] [facility], [place], [address], [employer] 01/10/2023 20:43:43 OBGyn Episode No OBEpisode recorded.
== END 2024-12-06 17:05 | disposition home or self-care (01) ==
LOC: ANHED 16:50
PROVIDERS: Emergency Provider Emergency Medicine; PCP Physician Assistant
DX: S06.0X0A Concussion without loss of consciousness, initial encounter (principal); S16.1XXA Strain of muscle, fascia and tendon at neck level, initial encounter; W07.XXXA Fall from chair, initial encounter
CPT/HCPCS: 99283